=== PATIENT | male | born 1990 | race Caucasian/White ===

== ENCOUNTER 2017-05-22 10:28 | Emergency (ER) | payer SELFPAY ==
[~2017-05-22] VITALS: Ht 175.3 cm; Wt 61.2 kg
[~2017-05-22 10:28] MED LIST: CLON0.5T3 PO; DEXT20CA7 PO; DEXT30CA6 PO; OXYC1TAB7 PO
[2017-05-22] MEDS ORDERED: KETOROLAC TROMETHAMINE 30 MG/ML INJ. IV ONE (11:00)
[2017-05-22] MEDS ORDERED: IV NORMAL SALINE 1000ML BAG 1,000 ML IV ONE (11:00)
--- NOTE | 2017-05-22 11:03 | PHYS DOC ---
Past Medical History Past Medical History: Kidney Stone, Other Additional Past Medical Histor: adhd Past Surgical History: Other Additional Past Surgical Histo: shoulder, renal stent Alcohol Use: Occasionally Drug Use: None Adult General Chief Complaint Chief Complaint: FLANK PAIN HPI HPI 26-year-old male who states he has an extensive history of multiple prior kidney stones previously treated with a urologic procedure, now presents to the emergency department planing of sudden onset of left flank pain last night with colicky pain continuing today. Patient has nausea. No fevers chills sweats or shaking chills. Denies abdominal pain. Left flank pain persists and he says it is worse with movement. No gross hematuria. Denies being anticoagulated or having bleeding problems Review of Systems Review of Systems Constitutional: Denies fever or chills [] Eyes: Denies change in visual acuity, redness, or eye pain [] HENT: Denies nasal congestion or sore throat [] Respiratory: Denies cough or shortness of breath [] Cardiovascular: No additional information not addressed in HPI [] GI: Denies abdominal pain, nausea, vomiting, bloody stools or diarrhea [] : Denies dysuria or hematuria [] Musculoskeletal: Denies back pain or joint pain [] Integument: Denies rash or skin lesions [] Neurologic: Denies headache, focal weakness or sensory changes [] Endocrine: Denies polyuria or polydipsia [] Current Medications Current Medications Current Medications Medications (Trade) Dose Ordered Sig/Dion Start Time Stop Time Status Last Admin Dose Admin Acetaminophen/ Hydrocodone Bitart (Lortab 5/325) 1 tab 1X ONCE 05/22/17 12:30 05/22/17 12:31 DC 05/22/17 12:48 1 TAB Cephalexin HCl (Keflex) 500 mg 1X ONCE 05/22/17 14:00 05/22/17 14:01 Ketorolac Tromethamine (Toradol) 30 mg 1X ONCE 05/22/17 11:00 05/22/17 11:01 DC 05/22/17 11:20 30 MG Sodium Chloride 1,000 ml @ 125 mls/hr 1X ONCE 05/22/17 11:00 05/22/17 18:59 05/22/17 11:20 125 MLS/HR Allergies Allergies Allergies Coded Allergies Type Severity Reaction Last Updated Verified No Known Drug Allergies 09/25/15 No Physical Exam Physical Exam Well-appearing male in what appears to be mild discomfort no acute distress. Clear lungs regular rate and rhythm mild tachycardia at 105 nontender abdomen with no mass or megaly nondistended normal bowel sounds. Positive left CVA/left lumbar soft tissue tenderness no right CVA tenderness or spinal tenderness . NVI distal Constitutional: Well developed, well nourished, no acute distress, non-toxic appearance. [] HENT: Normocephalic, atraumatic, bilateral external ears normal, oropharynx moist, no oral exudates, nose normal. [] Eyes: PERRLA, EOMI, conjunctiva normal, no discharge. [] Neck: Normal range of motion, no tenderness, supple, no stridor. [] Cardiovascular:Heart rate regular rhythm, no murmur [] Lungs & Thorax: Bilateral breath sounds clear to auscultation [] Abdomen: Bowel sounds normal, soft, no tenderness, no masses, no pulsatile masses. [] Skin: Warm, dry, no erythema, no rash. [] Back: As above Extremities: No tenderness, no cyanosis, no clubbing, ROM intact, no edema. [] Neurologic: Alert and oriented X 3, normal motor function, normal sensory function, no focal deficits noted. [] Psychologic: Affect normal, judgement normal, mood normal. [] Current Patient Data Vital Signs Vital Signs Date Time Temp Pulse Resp B/P (MAP) Pulse Ox O2 Delivery O2 Flow Rate FiO2 05/22/17 12:48 86 16 152/96 (114) 99 Room Air 05/22/17 10:40 98.0 98.0 Lab Values Laboratory Tests Test 05/22/17 10:50 05/22/17 10:54 Urine Collection Type Void Urine Color Yellow Urine Clarity Clear Urine pH 7.0 Urine Specific [place] <=1.005 Urine Protein Negative mg/dL (NEG-TRACE) Urine Glucose (UA) Negative mg/dL (NEG) Urine Ketones (Stick) Negative mg/dL (NEG) Urine Blood Negative (NEG) Urine Nitrite Negative (NEG) Urine Bilirubin Negative (NEG) Urine Urobilinogen Dipstick 0.2 mg/dL (0.2 mg/dL) Urine Leukocyte Esterase Moderate (NEG) Urine RBC 0 /HPF (0-2) Urine WBC 20-40 /HPF (0-4) Urine Squamous Epithelial Cells Few /LPF Urine Bacteria Few /HPF (0-FEW) White Blood Count 8.0 x10^3/uL (4.0-11.0) Red Blood Count 5.34 x10^6/uL (4.30-5.70) Hemoglobin 15.4 g/dL (13.0-17.5) Hematocrit 46.6 % (39.0-53.0) Mean Corpuscular Volume 87 fL (79-100) Mean Corpuscular Hemoglobin 29 pg (25-35) Mean Corpuscular Hemoglobin Concent 33 g/dL (31-37) Red Cell Distribution Width 14.8 % (11.5-14.5) H Platelet Count 276 x10^3/uL (140-400) Neutrophils (%) (Auto) 56 % (31-73) Lymphocytes (%) (Auto) 31 % (24-48) Monocytes (%) (Auto) 10 % (0-9) H Eosinophils (%) (Auto) 3 % (0-3) Basophils (%) (Auto) 0 % (0-3) Neutrophils # (Auto) 4.4 x10^3uL (1.8-7.7) Lymphocytes # (Auto) 2.5 x10^3/uL (1.0-4.8) Monocytes # (Auto) 0.8 x10^3/uL (0.0-1.1) Eosinophils # (Auto) 0.3 x10^3/uL (0.0-0.7) Basophils # (Auto) 0.0 x10^3/uL (0.0-0.2) Sodium Level 141 mmol/L (136-145) Potassium Level 3.5 mmol/L (3.5-5.1) Chloride Level 104 mmol/L (98-107) Carbon Dioxide Level 25 mmol/L (21-32) Anion Gap 12 (6-14) Blood Urea Nitrogen 7 mg/dL (8-26) L Creatinine 0.8 mg/dL (0.7-1.3) Estimated GFR (Cockcroft-Gault) 116.0 Glucose Level 94 mg/dL (70-99) Calcium Level 10.0 mg/dL (8.5-10.1) Laboratory Tests 05/22/17 10:54 Laboratory Tests 05/22/17 10:54 EKG EKG [] Radiology/Procedures Radiology/Procedures [] Course & Med Decision Making Course & Med Decision Making Pertinent Labs and Imaging studies reviewed. (See chart for details) Signs and symptoms consistent with suspected renal colic versus musculoskeletal low back pain. Patient clinically and hemodynamically stable. IV fluids administered and Toradol given. Workup pending including labs UA and CT without contrast [] Dragon Disclaimer Dragon Disclaimer This electronic medical record was generated, in whole or in part, using a voice recognition dictation system. Departure Departure Impression: Primary Impression: Staghorn renal calculus Disposition: HOME, SELF-CARE Condition: STABLE Referrals: IRAJ العراقي (PCP) Patient Instructions: Kidney Stones Additional Instructions: You have a large kidney stone in the collecting system of your left kidney. This is called a staghorn calculus. It will require a urologic procedure to remove it, however stones within the kidney do not cause ureteral colic ( the severe pain associated with kidney stones.) If you perceive discomfort take 800 mg of ibuprofen every 6 hours as well as Tylenol if needed. There is no way this stone will pass spontaneously. You will have to follow up with urology at [facility]. Discuss this with your doctor to arrange referral to urology for intervention and treatment as needed. Your urinalysis results were equivocal for the possibility of an early infection and you have been given antibiotics to prevent this. Finish as prescribed. You have no fever today and your white blood cell count is normal so it appears that infection is less likely, though with this antibiotic treatment it will be appropriately treated anyway.You have been given a copy of the CAT scan to follow up with your doctor to discuss the details of your case and arrange urology follow-up. Return immediately for new severe or worsening symptoms. Scripts Cephalexin (KEFLEX) 500 Mg Capsule 1 CAP PO QID, #40 CAP Prov: LOGAN PORTILLO MD 05/22/17 LOGAN PORTILLO MD May 22, 2017 11:03
[2017-05-22 11:10] LABS: BILIRUBIN,URINE NEGATIVE (NEG); GLUCOSE,URINE NEGATIVE (NEG); NITRITE,URINE NEGATIVE (NEG); PROTEIN,URINE NEGATIVE (NEG-TRACE); UROBILINOGEN,URINE 0.2 mg/dL (0.2 mg/dL)
[2017-05-22 11:22] LABS: BACTERIA,URINE FEW /HPF (0-FEW); RBC,URINE 0 /HPF (0-2); SQUAMOUS EPITHELIAL CELL,UR FEW /LPF; WBC,URINE 20-40 /HPF (0-4)
[2017-05-22 11:25] LABS: CREATININE 0.8 mg/dL (0.7-1.3); POTASSIUM 3.5 mmol/L (3.5-5.1)
--- NOTE | 2017-05-22 12:00 | RAD ---
CT abdomen/pelvis without IV contrast Indication: Left flank pain for 2 days. Evaluate for stone. Technique: CT abdomen/pelvis without IV contrast with multiplanar reformats. Comparison: None Findings: Heart is normal in size. No pericardial or pleural effusion. Clear lung bases. Noncontrast appearance of the liver, spleen, gallbladder, pancreas, adrenals is within normal limits. Large staghorn calculus measuring 1.5 x 1.1 x 1.6 cm is seen within inferior collecting system of the left kidney. Separate nonobstructive 4 mm stone seen in the interpolar left kidney. Nonobstructing 3 mm stone within right kidney. No hydronephrosis. Likely extrarenal left pelvis. Mild prominence of the left ureter without evidence of obstructing stone.No perinephric fluid collection or inflammatory changes. No retroperitoneal adenopathy. No bowel obstruction. Bladder is markedly distended without radiopaque stones. Prostate and seminal vessels within normal limits. No suspicious bony lesions. Impression: 1. Bilateral nonobstructing renal stones. The large staghorn calculus in the inferior collecting system of the left kidney measures 1.6 cm in largest dimension. 2. No hydronephrosis. PQRS Compliance Statement: One or more of the following individualized dose reduction techniques were utilized for this examination: 1. Automated exposure control 2. Adjustment of the mA and/or kV according to patient size 3. Use of iterative reconstruction technique
[2017-05-22 12:26] LABS: BASO % 0 % (0-3); EOS % 3 % (0-3); HEMATOCRIT 46.6 % (39.0-53.0); HEMOGLOBIN 15.4 g/dL (13.0-17.5); LYMPH # 2.5 x10^3/uL (1.0-4.8); LYMPH % 31 % (24-48); MEAN CORPUSCULAR HEMOGLOBIN 29 pg (25-35); MEAN CORPUSCULAR HGB CONC 33 g/dL (31-37); MEAN CORPUSCULAR VOLUME 87 fL (79-100); MONO % 10 % (0-9); NEUT % 56 % (31-73); PLATELET COUNT 276 x10^3/uL (140-400); RED BLOOD COUNT 5.34 x10^6/uL (4.30-5.70); RED CELL DISTRIBUTION WIDTH 14.8 % (11.5-14.5)
[2017-05-22] MEDS ORDERED: HYDROcodone/APAP 5/325MG 1 TAB TABLET PO ONE (12:30)
[2017-05-22] MEDS ORDERED: CEPH-264 PO (13:45)
[2017-05-22 13:47] VITALS: BP 114/62
[2017-05-22] MEDS ORDERED: CEPHALEXIN 250 MG CAPSULE. PO ONE (14:00)
== END 2017-05-22 14:00 | disposition home or self-care (01) ==
LOC: ER 10:28
DX: N20.0 Calculus of kidney (principal)
CPT/HCPCS: 36415; 74176; 80048; 81001; 85025; 96361; 96374; 99285; J1885; J7030